=== PATIENT | female | born 1960 | race Caucasian/White ===

== ENCOUNTER 2023-12-11 15:00 | Outpatient (CLI) | payer MEDICARE ==
[2023-12-11 16:29] LABS: Hematocrit 47.9 % (34.9-44.5); Hemoglobin 16.4 g/dL (12.0-15.5); Mean Corpuscular HGB CONC 34.2 g/dL (32.0-36.0); Mean Corpuscular Hemoglobin 30.8 pg (27.0-33.0); Mean Corpuscular Volume 89.9 fL (81.6-98.3); Mean Platelet Volume 10.2 fL (7.4-10.4); Platelet Count 300 10x3/uL (150-450); RBC Distribution Width 14.7 % (11.5-14.5); Red Blood Cell (RBC) Count 5.33 10x6/uL (3.90-5.03); White Blood Cell (WBC) Count 8.7 10x3/uL (3.5-10.5)
[2023-12-11 16:35] LABS: Bilirubin Neg (Negative); Blood, Urine 250 (Negative); Clarity Slightly Cloudy (Clear); Glucose, Urine (Dipstick) Normal (Negative); Ketone, Urine Negative (Negative); Leukocyte 100 (Negative); Nitrite Negative (Negative); Protein, Urine (Dipstick) 30 mg/dl (Neg-Trace)
[2023-12-11 16:40] LABS: Anion Gap 17 mmol/L (10-20); BUN (Urea Nitrogen) 21 mg/dL (9.8-20.1); Calc. Creatinine Clearance 0 mL/min (70-130); Carbon Dioxide 26 mmol/L (23-31); Chloride 104 mmol/L (98-107); Estimated GFR 50; Glucose 94 mg/dL (80-115); Potassium 4.5 mmol/L (3.5-5.1); Prothrombin Time 10.4 sec (9.5-12.1); Sodium 142 mmol/L (136-145)
[2023-12-11 16:58] LABS: RBC/HPF Greater than 50 HPF (0-3); Renal Epithelial 0-3 HPF (None Seen); Transitional Epithelial 0-3 HPF (None Seen)
[2023-12-11 16:59] LABS: Bacteria/HPF 2+ HPF (None Seen); Epithelial Cast 0-3 LPF (None Seen)
== END 2023-12-11 15:01 | disposition home or self-care (01) ==
LOC: LABBT 15:00
PROVIDERS: ATTEND Urology
DX: Z01.818 Encounter for other preprocedural examination (principal); N20.0 Calculus of kidney
CPT/HCPCS: 80048; 81001; 85027; 85610; 85730; 87086; 93005; 93010

== ENCOUNTER 2023-12-17 19:39 | Emergency (ER) | payer MEDICARE ==
[2023-12-17 20:53] LABS: Bacteria/HPF None Seen HPF (None Seen); Bilirubin Negative (Negative); Blood, Urine 3+ (Negative); CAUTI Indications for Culture Dysuria,urgency,freq; Clarity Turbid (Clear); Glucose, Urine (Dipstick) Normal (Negative); Ketone, Urine Negative (Negative); Leukocyte 25 Leu/uL (Negative); Nitrite Negative (Negative); Protein, Urine (Dipstick) 10 mg/dL (Neg-Trace); RBC/HPF Greater than 50 HPF (0-3); Specific Gravity, Urine 1.022 (1.002-1.036); Squamous Epithelial 0-3 HPF (0-3); Urobilinogen Normal mg/dL (Less than 2)
[2023-12-17 20:54] LABS: Urine Culture Reflex No No
[2023-12-17 21:15] LABS: #Basophils 0.07 10x3/uL (0.0-0.2); %Basophils 0.6 % (0.0-1.0); %Eosinophils 1.9 % (0.0-10.0); %Lymphocytes 15.7 % (21.0-51.0); %Monocytes 9.9 % (0.0-10.0); %Neutrophils 71.6 % (42.0-75.0); Hematocrit 43.2 % (36.0-47.0); Hemoglobin 14.3 g/dL (12.0-16.0); Mean Corpuscular HGB CONC 33.1 g/dL (32.0-36.0); Mean Corpuscular Hemoglobin 30.5 pg (27.0-31.0); Mean Corpuscular Volume 92.1 fL (78.0-98.0); Mean Platelet Volume 9.8 fL (7.4-10.4); Platelet Count 280 10x3/uL (130-400); Red Blood Cell (RBC) Count 4.69 mill/uL (4.20-5.40)
[2023-12-17 21:37] LABS: ALT (SGPT) 11 U/L (8-55); AST (SGOT) 18 U/L (5-34); Albumin 3.6 g/dL (3.4-4.8); Alkaline Phosphatase 76 U/L (40-110); Anion Gap 13 mmol/L (10-20); BUN (Urea Nitrogen) 19 mg/dL (9.8-20.1); Bilirubin, Total 0.6 mg/dL (0.2-1.2); Calc. Creatinine Clearance 0 mL/min (70-130); Carbon Dioxide 26 mmol/L (23-31); Chloride 106 mmol/L (98-107); Estimated GFR 88; Globulin 2.9 g/dL (2.4-3.5); Glucose 107 mg/dL (80-115); Potassium 3.9 mmol/L (3.5-5.1); Protein, Total 6.5 g/dL (5.8-8.1); Sodium 141 mmol/L (136-145)
[2023-12-17] MEDS ORDERED: Ketorolac Tromethamine 30 MG (1 mL) VIAL ONE (22:06)
== END 2023-12-18 01:52 | disposition home or self-care (01) ==
LOC: ERS 19:39
DX: N13.2 Hydronephrosis with renal and ureteral calculous obstruction (principal); F17.210 Nicotine dependence, cigarettes, uncomplicated
CPT/HCPCS: 74176; 80053; 81001; 83605; 85025; 87086; 96374; 99284; J1885; 36415

== ENCOUNTER 2023-12-23 06:19 | Day surgery (SDC) | payer MEDICARE ==
[2023-12-11 15:21] VITALS: BMI 40.8
[2023-12-23] MEDS ORDERED: PROPOFOL 20 ML ONE ×2 (07:28→07:57)
[2023-12-23] MEDS ORDERED: LevoFLOXacin D5W 500 mg (100 mL) BAG ONE (08:17)
[2023-12-23] MEDS ORDERED: fentaNYL PF 100 MCG/2 ML SYRINGE ONE (09:09)
[2023-12-23] MEDS ORDERED: SUCCINYLCHOLINE/SOD CL,ISO/PF 200 MG/10 ML SYRINGE FS ONE (09:31)
[2023-12-23] MEDS ORDERED: Rocuronium Bromide 10 MG/ML (10ML VIAL) ONE ×2 (09:31)
[2023-12-23] MEDS ORDERED: Dexamethasone 20 MG/5 ML VIAL ONE (09:31)
[2023-12-23] MEDS ORDERED: Lidocaine 1% PF 5 ML VIAL ONE (09:31)
[2023-12-23] MEDS ORDERED: SUGAMMADEX SODIUM 200 MG/2 ML VIAL ONE (10:04)
[2023-12-23] MEDS ORDERED: Iopamidol 15 ML ONE (10:18)
[2023-12-23] MEDS ORDERED: Phenazopyridine HCl 100 MG TAB ONE (11:34)
[2023-12-23] MEDS ORDERED: Oxybutynin 5 MG TAB ONE (11:34)
[2023-12-23] MEDS ORDERED: PHENYLEPHRINE-NS 100 MCG/ML 10 ML SYRINGE ONE (13:18)
[2023-12-23] MEDS ORDERED: Ondansetron PF 4 MG/2 ML Vial ONE (14:19)
[2023-12-23] MEDS ORDERED: Ketorolac Tromethamine 30 MG (1 mL) VIAL ONE (14:20)
== END 2023-12-23 12:19 | disposition home or self-care (01) ==
LOC: SDC 06:19
PROVIDERS: ATTEND Urology
PROC: 0TC78ZZ Extirpation of Matter from Left Ureter, Via Natural or Artificial Opening Endoscopic (ICD-10-PCS; principal; 2023-12-23)
PROC: 0T778DZ Dilation of Left Ureter with Intraluminal Device, Via Natural or Artificial Opening Endoscopic (ICD-10-PCS; 2023-12-23)
DX: N20.1 Calculus of ureter (principal); Z79.82 Long term (current) use of aspirin; Z90.710 Acquired absence of both cervix and uterus; Z87.59 Personal history of other complications of pregnancy, childbirth and the puerperium; F17.210 Nicotine dependence, cigarettes, uncomplicated; Z88.0 Allergy status to penicillin; Z88.2 Allergy status to sulfonamides; Z79.899 Other long term (current) drug therapy
CPT/HCPCS: 52356; 71045; 82365; 93005; C1769; C2617; J1100; J1885; J1956; J2405; J2704; Q9967; 88300; 93010

== ENCOUNTER 2024-03-05 03:36 | Emergency (ER) | payer MEDICARE ==
[2024-03-05] MEDS ORDERED: Dexamethasone 10 MG/ML VIAL ONE (04:10)
[2024-03-05] MEDS ORDERED: Metoclopramide HCl 10 MG (2 mL) VIAL ONE (04:10)
[2024-03-05] MEDS ORDERED: Sodium Chloride 0.9% 100 ML ONE (04:10)
[2024-03-05] MEDS ORDERED: Ketorolac Tromethamine 30 MG (1 mL) VIAL ONE (04:10)
[2024-03-05 04:37] LABS: Bacteria/HPF None Seen HPF (None Seen); Bilirubin Negative (Negative); Blood, Urine Negative (Negative); CAUTI Indications for Culture Pelvic or flank pain; Clarity Clear (Clear); Glucose, Urine (Dipstick) Normal (Negative); Ketone, Urine Negative (Negative); Leukocyte 25 Leu/uL (Negative); Nitrite Negative (Negative); Protein, Urine (Dipstick) Negative (Neg-Trace); RBC/HPF None Seen HPF (0-3); Specific Gravity, Urine 1.009 (1.002-1.036); Squamous Epithelial 0-3 HPF (0-3); Urobilinogen Normal mg/dL (Less than 2); WBC/HPF 0-3 HPF (0-3)
[2024-03-05 04:39] LABS: Urine Culture Reflex No No
[2024-03-05 05:04] LABS: #Basophils 0.08 10x3/uL (0.0-0.2); %Basophils 1.1 % (0.0-1.0); %Eosinophils 2.9 % (0.0-10.0); %Neutrophils 54.7 % (42.0-75.0); Hematocrit 47.7 % (36.0-47.0); Hemoglobin 15.9 g/dL (12.0-16.0); Mean Corpuscular HGB CONC 33.3 g/dL (32.0-36.0); Mean Corpuscular Hemoglobin 30.3 pg (27.0-31.0); Mean Corpuscular Volume 90.9 fL (78.0-98.0); Mean Platelet Volume 9.9 fL (7.4-10.4); Platelet Count 271 10x3/uL (130-400); RBC Distribution Width 15.2 % (11.5-14.5); Red Blood Cell (RBC) Count 5.25 mill/uL (4.20-5.40)
[2024-03-05 05:21] LABS: ALT (SGPT) 13 U/L (8-55); AST (SGOT) 18 U/L (5-34); Alkaline Phosphatase 76 U/L (40-110); Anion Gap 10 mmol/L (10-20); BUN (Urea Nitrogen) 17 mg/dL (9.8-20.1); Bilirubin, Total 0.7 mg/dL (0.2-1.2); Calc. Creatinine Clearance 0 mL/min (70-130); Calcium 9.4 mg/dL (7.8-10.44); Carbon Dioxide 28 mmol/L (23-31); Chloride 106 mmol/L (98-107); Estimated GFR 97; Globulin 2.9 g/dL (2.4-3.5); Glucose 103 mg/dL (80-115); Lipase 30 U/L (8-78); Protein, Total 6.9 g/dL (5.8-8.1); Sodium 140 mmol/L (136-145)
[2024-03-05 05:27] LABS: Troponin I Less than 0.010 ng/mL (< 0.028)
== END 2024-03-05 05:37 | disposition home or self-care (01) ==
LOC: ERS 03:36
DX: R51.9 Headache, unspecified (principal); M54.50 Low back pain, unspecified; R29.700 NIHSS score 0; F17.210 Nicotine dependence, cigarettes, uncomplicated
CPT/HCPCS: 70450; 80053; 81001; 83690; 84484; 85025; 93005; J1100; J1885; J2765; 36415; 96374; 96375